=== PATIENT | male | born 1945 | race Caucasian/White ===

== ENCOUNTER → 2017-12-18 10:40 | Outpatient (CLI) | payer MEDICARE, BC, OTHER ==
[2017-12-18 11:09] LABS: BASOPHILS 1.1 % (0-2); EOSINOPHILS 1.8 % (0-7); HEMOGLOBIN 8.2 g/dL (13.5-17.5); IMMATURE GRANULOCYTES 0.2 % (0-5); LYMPHOCYTES 22.4 % (15-50); MCH 21.2 pg (26.0-34.0); MCHC 28.3 g/dL (31.0-37.0); MCV 75.1 fL (80.0-100.0); MEAN PLATELET VOLUME 8.5 fL (7.4-10.4); MONOCYTES 7.8 % (2-11); NEUTROPHILS 66.7 % (40-80); PLATELET COUNT 143 10x3/uL (130-400); RBC 3.86 10x6/uL (4.20-6.10); WBC 5.6 10x3/uL (4.8-10.8)
[2017-12-18 11:20] LABS: ANION GAP 13.1 mmol/L (8-16); CALCIUM 7.8 mg/dL (8.5-10.1); CARBON DIOXIDE 24.4 mmol/L (21.0-32.0); CREATININE - SERUM 1.1 mg/dL (0.6-1.3); POTASSIUM - SERUM 3.5 mmol/L (3.5-5.1)
[2017-12-18 11:25] LABS: INR 2.01 (0.85-1.17); PROTIME 22.2 SECONDS (11.6-15.0)
== END | disposition home or self-care (01) ==
LOC: D.LAB 10:40
PROVIDERS: Thoracic Surgery (Cardiothoracic Vascular Surgery)
DX: Z95.811 Presence of heart assist device (principal); Z51.81 Encounter for therapeutic drug level monitoring; Z79.01 Long term (current) use of anticoagulants

== ENCOUNTER → 2017-12-23 10:21 | Outpatient (CLI) | payer MEDICARE, BC, OTHER ==
[2017-12-23 11:13] LABS: BASOPHILS 0.9 % (0-2); EOSINOPHILS 3.9 % (0-7); HEMATOCRIT 29.4 % (42.0-54.0); HEMOGLOBIN 8.1 g/dL (13.5-17.5); IMMATURE GRANULOCYTES 0.4 % (0-5); LYMPHOCYTES 23.8 % (15-50); MCH 20.5 pg (26.0-34.0); MCHC 27.6 g/dL (31.0-37.0); MCV 74.4 fL (80.0-100.0); MEAN PLATELET VOLUME 8.7 fL (7.4-10.4); MONOCYTES 8.2 % (2-11); NEUTROPHILS 62.8 % (40-80); PLATELET COUNT 139 10x3/uL (130-400); RBC 3.95 10x6/uL (4.20-6.10); RDW 17.2 % (11.5-14.5); WBC 5.6 10x3/uL (4.8-10.8)
[2017-12-23 11:16] LABS: INR 1.79 (0.85-1.17); PROTIME 20.2 SECONDS (11.6-15.0)
[2017-12-23 11:22] LABS: CALCIUM 7.9 mg/dL (8.5-10.1); CARBON DIOXIDE 28.5 mmol/L (21.0-32.0); CREATININE - SERUM 1.2 mg/dL (0.6-1.3); POTASSIUM - SERUM 4.5 mmol/L (3.5-5.1)
== END | disposition home or self-care (01) ==
LOC: D.LAB 10:21
PROVIDERS: Thoracic Surgery (Cardiothoracic Vascular Surgery)
DX: Z95.811 Presence of heart assist device (principal); Z51.81 Encounter for therapeutic drug level monitoring; Z79.01 Long term (current) use of anticoagulants